=== PATIENT | male | born 1955 | race Caucasian/White ===

== ENCOUNTER → 2016-10-30 | Outpatient (CLI) | payer OTHER ==
--- NOTE | 2016-10-30 13:57 | REP ---
WHOLE BODY RADIONUCLIDE BONE SCAN: HISTORY: Lung carcinoma. Comparison is made with CT pulmonary angiogram from [facility] dated October 19, 2016. TECHNIQUE: 21.9 mCi technetium 99m MDP is injected and standard whole body bone scan imaging is acquired. FINDINGS: There is heterogeneous uptake in the right side of the manubrium consistent with a metastatic lesion. Review of CT study shows a destructive lytic lesion in this location. There is an area of increased uptake in the thoracic spine at T9. There is a focus of increased uptake in the posterolateral 9th rib on the right. In addition there is suspicious photopenia in the right side of the L2 vertebral body. There is a focus of increased uptake in the posterior mid sacrum to the left of midline. There is an area of increased uptake in the subtrochanteric femur on the right. There is uptake in bilateral kidneys and in the urinary bladder. IMPRESSION: There is evidence of skeletal metastatic disease at several sites as above including the manubrium, T9, the right 9th rib, the mid sacrum, L2, and the subtrochanteric femur on the right side. Signed by Mk Ramos MD 10/30/2016 03:00 P
== END | disposition home or self-care (01) ==
LOC: M RAD 09:44
PROVIDERS: ATTEND Internal Medicine Medical Oncology
DX: C34.90 Malignant neoplasm of unspecified part of unspecified bronchus or lung (principal); R93.7 Abnormal findings on diagnostic imaging of other parts of musculoskeletal system

== ENCOUNTER 2016-11-04 02:15 | Emergency (ER) | payer OTHER ==
[2016-11-04] MEDS ORDERED: IPRATROPIUM 0.5MG/ALBUTEROL 2.5MG INH SOL UD 3ML (DUONEB)(J7620) As Ordered ONE (03:24)
[2016-11-04] MEDS ORDERED: MORPHINE 4 MG/ML 1ML SYRINGE As Ordered ONE ×2 (03:32→04:11)
[2016-11-04 03:34] LABS: DIFF SLIDE NUMBER 116; MEAN CORPUSCULAR HEMOGLOBIN 29.1 pg (27.0-33.0); MEAN CORPUSCULAR VOLUME 93.8 fl (80.0-96.0); RED CELL DISTRIBUTION WIDTH 14.9 % (11.5-14.5)
[2016-11-04 03:53] LABS: PLATELET COUNT, AUTOMATED 54 k/mm3 (150-450)
[2016-11-04 03:59] LABS: EOSINOPHILS 1 % (0-5); NUCLEATED RED BLOOD CELL 2 % (0-0)
[2016-11-04 04:03] LABS: HYPOCHROMASIA 1+
[2016-11-04 04:05] LABS: ABG BASE EXCESS -24.1 (-2.0-2.0); ABG DEVICE NASAL CANN; ABG HCO3 4.6 MEQ/L (22.0-26.0); ABG PARTIAL PRESSURE O2 129.9 mmHg (75.0-100.0); ABG STANDARD HCO3 7.9 MEQ/L (22.0-26.0); ABG TOTAL CO2 5.1 MEQ/L (23.0-31.0)
[2016-11-04 04:06] LABS: CALCIUM LEVEL 10.8 MG/DL (8.8-10.2); CREATININE FOR GFR 1.76 MG/DL (0.70-1.30); GLOMERULAR FILTRATION RATE 42.1 (>49)
[2016-11-04 04:09] LABS: ABG PARTIAL PRESSURE CO2 17.1 mmHg (35.0-45.0); ABG pH (ARTERIAL) 7.046 UNITS (7.350-7.450)
[2016-11-04 04:14] LABS: POTASSIUM SERUM 5.6 MEQ/L (3.5-5.1)
[2016-11-04] MEDS ORDERED: DEXTROSE 50% 50 ML SYRINGE As Ordered ONE (04:16)
--- NOTE | 2016-11-04 04:34 | REP ---
Clinical: Cough. Technique: Portable AP view. Findings: Large right hilar mass / consolidation extending into the right upper lobe and right perihilar region is appreciated along with underlying chronic COPD/emphysematous changes. Trace left basilar atelectasis cannot be excluded. No obvious effusion or pneumothorax. [id number] identified extending into the SVC. Cardiac silhouette appears normal. Skeletal structures intact. Impression: Right hilar mass / consolidation extending into the right upper lobe. Chronic COPD/emphysematous changes. Trace left basilar atelectasis. Signed by Thiago Zavaleta MD 11/04/2016 04:26 A
[2016-11-04] MEDS ORDERED: HYDROmorphone HCL 1 MG/ML SYRINGE (J1170) As Ordered ONE (04:46)
[2016-11-04] MEDS ORDERED: ZOSYN 3.375 GM VIAL (J2543) As Ordered ONE (04:47)
[2016-11-04] MEDS ORDERED: LORazepam 2 MG/ML VIAL (J2060) As Ordered ONE (04:50)
--- NOTE | 2016-11-04 06:00 | REPUSA ---
CLINICAL HISTORY: Shortness of breath. TECHNIQUE: Multiple axial CT images were obtained through the thorax without IV contrast material. COMMENTS: 10.9x5.4 cm heterogeneous right upper lobe/perihilar mass. Moderate pulmonary emphysema. Bilateral groundglass densities of the lungs. Left Port-A-Cath is in good position with its tip in the superior vena cava. Small sliding hiatal hernia. Moderate cardiomegaly. Spondylosis. Diffuse bilateral groundglass densities of the lungs. Mediastinal and hilar lymphadenopathy. The largest lymph node measures 1.3 cm. IMPRESSION: Heterogeneous right upper lobe/ihilar mass. Emphysema. Groundglass densities of the lungs. Mediastinal and hilar lymphadenopathy. Thank you for your kind referral of this patient.
--- NOTE | 2016-11-04 06:10 | REPUSA ---
CLINICAL HISTORY: Abdominal pain. TECHNIQUE: Multiple axial, sagittal and coronal CT images were obtained through the abdomen and pelvi s without administration of oral or IV contrast material. COMMENTS: The liver is moderately enlarged without mass or defect. Diffuse irregular hepatic contour. There is no intra or extrahepatic biliary ductal dilatation. The spleen is normal. The gallbladder is within n ormal limits. The pancreas is of normal contour and attenuation characteristics. There is no evidence of adrenal mass. The kidneys are normal in size, shape and configuration. No renal or ureteral calculi are identified. There is no hydroureter or hydronephrosis. There is no evidence for appendicitis. There is no bowel wall thickening. No evidence for small or la rge bowel obstruction. There is no evidence of abdominal ascites or lymphadenopathy. There is no evidence of intrinsic or extrinsic bladder mass. There is no pelvic ascites or lymphadeno sheri. Moderate prostatomegaly. Prostatic calcifications. Diffuse thickening of the wall of the bladder. Images of the lung bases show no evidence of pleural or parenchymal mass. There are no pleural effusi ons. The bony structures are free of lytic or blastic lesions. Multilevel degenerative changes are seen in volving the thoracolumbar spine. Scattered calcifications are seen involving the aorta and major branches compatible with atherosclero sis. IMPRESSION: Moderate prostatomegaly. Prostatic calcifications. Diffuse thickening of the wall of the bladder. Moderate hepatomegaly with diffuse irregularity of hepatic contour. Thank you for your kind referral of this patient.
--- NOTE | 2016-11-04 10:55 | EDDOCDS ---
Nurse's Notes [facility] Name: Bryan Patel Age: 61 yrs Sex: Male : 1955 Arrival Date: 11/04/2016 Time: 02:15 Bed 21 Private MD: Diagnosis: Cardiac qibcbu-Hmd-gfpoy lung cancer;Metabolic acidemia, unspecified-severe Presentation: 11/04 02:17 Presenting complaint: EMS states: 61 yo male with difficulty breathing that became mgs worse couple hours ago, patient recently with lung cancer with mets to the brain. Patient received albuterol en route. 92% on 10L NRB. No reports from patient of SOB after breathing treatment. Suicide/Homicide risk assessment- the patient denies having any suicidal and/or homicidal ideations and does not present with any other emotional, behavioral or mental health complaints. Status: Patient is not a servicer travel trailers or dependent. Transition of care: patient was not received from another setting of care. 02:17 Acuity: BORIS Level 3 mgs 02:17 Method Of Arrival: Ambulance mgs 02:26 Adult Sepsis Screening: The patient does not have new or worsening altered mentation. mgs Patient has a respiratory rate of greater than or equal to 22 (1 point). Systolic blood pressure is greater than 100. Patient has a qSOFA score of 1- Negative Sepsis Screen. Triage Assessment: 02:29 General: Appears uncomfortable, Behavior is cooperative. Pain: Location: lumbar area mgs Pain currently is 8 out of 10 on a pain scale. Pt Declines HIV testing. The patient is triaged at the bedside. See Assessment in Nurses Notes section of ED record. Neurological: Level of Consciousness is awake, alert, Oriented to person, place, time. Cardiovascular: Capillary refill < 3 seconds Heart tones S1 S2 present. Respiratory: Onset: The symptoms/episode began/occurred today, Airway is patent Respiratory effort is even, labored, Respiratory pattern is regular, symmetrical. Derm: Skin is dusky. Historical: - Allergies: no known allergies; - Home Meds: 1. Doc-Q-Lace 100 mg oral cap 1 cap 2 times per day 2. prochlorperazine maleate 5 mg Oral tab 1 tab 3 times per day as needed (Last dose: 11/03/2016 20:00) 3. atenolol 25 mg Oral tab 1 tab once daily (Last dose: 11/03/2016 08:00) 4. Zofran (as hydrochloride) 8 mg Oral tab 1 tab every 6 hours as needed (Last dose: 11/03/2016 20:00) 5. lisinopril 10 mg Oral tab 1 tab once daily (Last dose: 11/03/2016 08:00) 6. oxycodone 5 mg Oral cap 1 cap every 6 hours (Last dose: 11/04/2016 00:45) - PMHx: COPD; Hypertension; lung cancer; bone cancer; liver cancer; - PSHx: none; - Social history: Smoking status: Patient states former smoker of tobacco. No barriers to communication noted, The patient speaks fluent [place]. - Family history: Not pertinent. - : The pt / caregiver states he / she is not on anticoagulants. Home medication list is obtained from family members. - Exposure Risk Screening:: None identified. Screenin:39 Screening information is obtained from the patient, family members. Fall risk: At risk mgs due to age. Assistance ADL's: requires no assistance with activities of daily living. Abuse/DV Screen: The patient / caregiver reports he/she is: not in a situation that causes fear, pain or injury. Nutritional screening: No deficits noted. Advance Directives: Currently, there is no health care proxy. There is no active DNR order. home support is adequate. Assessment: 02:48 General: Appears ill, Behavior is cooperative. Pain: Location: low back area Pain mlc currently is 6 out of 10 on a pain scale. Neurological: Level of Consciousness is awake, obeys commands, Oriented to person, place, time. Cardiovascular: Capillary refill < 3 seconds Heart tones S1 S2 present Rhythm is regular Chest pain is denied. Respiratory: Airway is patent Respiratory effort is even, labored, Respiratory pattern is regular, Breath sounds with rhonchi expiratory bilaterally. Reports shortness of breath. Derm: Skin is pale. 03:25 Reassessment: Patient appears in no apparent distress at this time. Patient states mlc symptoms have not improved. no changes since prior. resp labored. RT at bedside. 03:42 Reassessment: Patient appears in no apparent distress at this time. pt medicated per mlc order. 04:38 General: pt returned from CT, IV fluids infusing per order. non-rebreather in place. . mlc 04:45 General: pt becoming restless on stretcher. pt advised to stay in bed. pt c/o increased mlc abdominal pain. Dr. Smith made aware. 04:47 General: Dr. Smith at bedside, speaking with about patient's rapidly mlc deteriorating condition. pt resting on stretcher, HR decreasing at this time. . 04:53 General: agonal resp at this time. at bedside. . mlc 04:55 General: pt pronounced at this time. . mlc Social Work Consult: 06:06 Social Work Note: Provided support to the family. jfb Vital Signs: 02:26 BP 118 / 82 (auto/); mlc 02:27 BP 144 / 65; Pulse 105; Resp 24; Temp 97.2(TE); Weight 64.86 kg (R); Height 5 ft. 10 dajuan in. (177.80 cm) (R); Pain 0/10; 02:27 Pulse 95 MON; Pulse Ox 90% ; mlc 02:42 Pulse 92 MON; Pulse Ox 91% ; mlc 03:24 Pulse 98 MON; Pulse Ox 93% ; mlc 03:26 Pulse 97 MON; Pulse Ox 95% ; mlc 03:26 BP 117 / 79 (auto/); mlc 03:35 BP 133 / 95 (auto/); mlc 03:35 Pulse 106 MON; Pulse Ox 100% ; mlc 03:45 Pulse 100 MON; Pulse Ox 93% ; mlc 03:45 BP 120 / 82 (auto/); mlc 04:00 BP 139 / 66; Pulse 104; Pulse Ox 97% ; Pain 10/10; mlc 04:09 Pulse 101 MON; Pulse Ox 93% ; mlc 04:09 BP 139 / 66 (auto/); mlc 04:30 BP 135 / 85 (auto/); mlc 04:37 Pulse 108 MON; Pulse Ox 94% ; mlc 04:45 BP 108 / 93 (auto/); mlc 04:45 Pulse 108 MON; Pulse Ox 78% ; mlc 04:59 Pulse 0 MON; mlc 02:27 Body Mass Index 20.52 (64.86 kg, 177.80 cm) dajuan ED Course: 02:16 Patient visited by Rodri Rich, College Physics Instructor. ml3 02:16 Nika Looney,RN is Primary Nurse. ml3 02:16 Patient moved to Waiting ml3 02:16 Patient moved to 10 ml3 02:20 Triage Initiated mgs 02:26 Patient moved to 3 tavo 02:27 Pt greeted and oriented to ED. Patient advised of names of staff involved in care, dajuan location of call bashir, wait times and NPO status. Patient has correct armband on for positive identification. Placed in gown. Bed in low position. Call light in reach. Side rails up X2. small boat engineer on. Pulse ox on. NIBP on. 02:28 Patient visited by Ophelia Diaz PCA. dajuan 02:39 The patient / caregiver is instructed regarding the plan of care and ED course. mgs 02:40 Maintain field IV. Dressing intact. Good blood return noted. Site clean & dry. Gauge & mgs site: 20 gauge in the left AC. 02:48 O2 via non-rebreather \T\ 15L/min. mlc 02:50 Patient visited by Nika Looney RN. mlc 03:01 Edward Smith DO is Attending Physician. mm11 03:01 Patient visited by Edward Smith DO. mm11 03:16 Patient visited by Edward Smith DO. mm11 03:18 Patient visited by Ophelia Diaz PCA. dajuan 03:18 Patient moved to Radiology moncho 03:18 EKG done. (by ED staff). Reviewed by Edward Smith DO. dajuan 03:25 BLOOD CULTURES Sent. mlc 03:25 -Blood Culture Sent. mlc 03:25 B-Type Natiuretic Peptide Sent. mlc 03:25 Basic Metabolic Profile Sent. mlc 03:25 CBC with Diff Sent. mlc 03:25 Cardiac Injury Profile Sent. mlc 03:26 Patient visited by Nika Looney RN. mlc 03:32 Patient moved to 3 moncho 03:43 Patient visited by Nika Looney RN. mlc 03:59 DIFFERENTIAL NO CHARGE Sent. mlc 04:02 -Arterial Blood Gas Sent. rs5 04:15 Notified attending ED physician of Critical lab value. pH 7.046 pCo2 17.1 and glucose js15 of 32. 04:21 Lactic Acid (Bruno tube on ice) Sent. mlc 04:39 Patient visited by Nika Looney RN. mlc 04:50 Patient name changed from Bryan\S\\S\Patel\S\ to Bryan\S\ \S\Patel. EDMS 04:51 [facility] Payment Agreement was scanned into [employer] and attached to record. hs2 04:51 Notified attending ED physician of Critical lab value. lactic acid of 17. mlc 05:09 Edward Smith DO is Pronouncing Provider. mm11 05:12 Chest, 1 View Returned. EDMS 05:12 No procedures done that require assistance. mlc 05:20 Patient moved to Oct 05:36 Trend VS was scanned into [employer] and attached to record. ml3 06:33 CT Chest Without Contrast Returned. EDMS 06:33 CT ABD & PELVIS: No Contrast Returned. EDMS 08:54 Primary Nurse role handed off by Nika Looney RN [email or web address] Administered Medications: 03:35 Drug: morphine 4 mg [morphine 4 mg/mL intravenous cartridge (1 mL)] Route: IVP; Site: [facility] left antecubital; 04:00 Follow up: BP 139 / 66; Pulse 104 bpm; Pulse Ox 97% ; Pain 10/10 Adult [facility] 03:45 Drug: Albuterol-Ipratropium 1 neb [ipratropium-albuterol 0.5 mg-3 mg(2.5 mg base)/3 mL rs5 nebulization soln (1 neb)] Route: Nebulizer; 04:00 Drug: Albuterol-Ipratropium 1 neb [ipratropium-albuterol 0.5 mg-3 mg(2.5 mg base)/3 mL rs5 nebulization soln (1 neb)] Route: Nebulizer; 04:00 Drug: Albuterol-Ipratropium 1 neb [ipratropium-albuterol 0.5 mg-3 mg(2.5 mg base)/3 mL rs5 nebulization soln (1 neb)] Route: Nebulizer; 04:12 Drug: morphine 4 mg [morphine 4 mg/mL intravenous cartridge (1 mL)] Route: IVP; Site: mlc left antecubital; 04:20 Drug: D50W 50 ml [dextrose 50 % in water (D50W) intravenous syringe (50 mL)] Route: mlc IVP; Site: left antecubital; 04:38 Drug: NS 0.9% 1000 ml [sodium chloride 0.9 % intravenous solution] Route: IV; Rate: mlc bolus; Site: left antecubital; 04:55 CANCELLED (patient ): LORazepam 1 mg IVP once mgs 06:52 Not Given (Patient ): Dilaudid - HYDROmorphone 1 mg IVP once tavo 06:53 Not Given (Patient ): Piperacillin-Tazobactam 3.375 grams IVPB once over 30 oct mins; dilute in 50mL of NS or D5W Attachments: 05:36 Trend VS ml3 RT: 02:40 O2 via high flow nasal cannula with humidity for comfort. 15 lpm sats 93%. rs5 02:48 O2 via non-rebreather pt didn't tolerate high flow cannula. requested to have the non rs5 rebreather. 04:02 ABG's drawn from right radial artery allens test done and positive pressure held for 5 rs5 minutes no bleeding noted pressure bandage applied specimen sent pt. tolerated well. Initial Med Neb Given as ordered Patient was instructed and evaluated on procedure Patient tolerated procedure well without adverse effect Subsequent Med Neb Given as ordered Patient tolerated procedure well without adverse effect. Respiratory: Respiratory effort is even, labored, Use of accessory muscles noted. w/ retractions, Breath sounds are coarse bilaterally. Reports. Order Results: Lab Order: -Arterial Blood Gas; SPEC'M 11/04/16 03:35 Test: ABG pH (ARTERIAL); Value: 7.046; Range: 7.350-7.450; Abnormal: Critical Low; Units: UNITS; Status: F Test: ABG PARTIAL PRESSURE CO2; Value: 17.1; Range: 35.0-45.0; Abnormal: Critical Low; Units: mmHg; Status: F Test: ABG PARTIAL PRESSURE O2; Value: 129.9; Range: 75.0-100.0; Abnormal: Above high normal; Units: mmHg; Status: F Test: ABG TOTAL CO2; Value: 5.1; Range: 23.0-31.0; Abnormal: Below low normal; Units: MEQ/L; Status: F Test: ABG HCO3; Value: 4.6; Range: 22.0-26.0; Abnormal: Below low normal; Units: MEQ/L; Status: F Test: ABG BASE EXCESS; Value: -24.1; Range: -2.0-2.0; Abnormal: Below low normal; Status: F Test: ABG STANDARD HCO3; Value: 7.9; Range: 22.0-26.0; Abnormal: Below low normal; Units: MEQ/L; Status: F Test: ABG O2 SATURATION; Value: 97.2; Range: 95.0-99.0; Units: %; Status: F Test: ABG DEVICE; Value: NASAL ERIKA; Status: F Lab Order: B-Type Natiuretic Peptide; SPEC'M 11/04/16 03:21 Test: BRAIN NATRIURETIC PEPTIDE; Value: 960; Range: <100; Abnormal: Above high normal; Units: PG/ML; Status: F Lab Order: Basic Metabolic Profile; SPEC'M 11/04/16 03:21 Test: GLUCOSE, FASTING; Value: 32; Range: 80-110; Abnormal: Critical Low; Units: MG/DL; Status: F Test: BLOOD UREA NITROGEN; Value: 51; Range: 7-18; Abnormal: Above high normal; Units: MG/DL; Status: F Test: CREATININE FOR GFR; Value: 1.76; Range: 0.70-1.30; Abnormal: Above high normal; Units: MG/DL; Status: F Test: GLOMERULAR FILTRATION RATE; Value: 42.1; Range: >49; Abnormal: Below low normal; Status: F Test: SODIUM LEVEL; Value: 141; Range: 136-145; Units: MEQ/L; Status: F Test: POTASSIUM SERUM; Value: 5.6; Range: 3.5-5.1; Abnormal: Above high normal; Units: MEQ/L; Status: F Test: CHLORIDE LEVEL; Value: 100; Range: 98-107; Units: MEQ/L; Status: F Test: CARBON DIOXIDE LEVEL; Value: 10; Range: 21-32; Abnormal: Below low normal; Units: MEQ/L; Status: F Test: ANION GAP; Value: 31; Range: 8-16; Abnormal: Above high normal; Units: MEQ/L; Status: F Test: CALCIUM LEVEL; Value: 10.8; Range: 8.8-10.2; Abnormal: Above high normal; Units: MG/DL; Status: F Test Note: ; Units are mL/min/1.73 m2 Chronic Kidney Disease Staging per NKF: Stage I & II GFR >=60 Normal to Mildly Decreased Stage III GFR 30-59 Moderately Decreased Stage IV GFR 15-29 Severely Decreased Stage V GFR <15 Very Little GFR Left ESRD GFR <15 on BIT SHAVER Lab Order: CBC with Diff; SPEC'M 11/04/16 03:21 Test: WHITE BLOOD COUNT; Value: 20.0; Range: 4.0-10.0; Abnormal: Above high normal; Units: K/mm3; Status: F Test: RED BLOOD COUNT; Value: 4.58; Range: 4.30-6.10; Units: M/mm3; Status: F Test: HEMOGLOBIN; Value: 13.3; Range: 14.0-18.0; Abnormal: Below low normal; Units: g/dl; Status: F Test: HEMATOCRIT; Value: 43.0; Range: 42.0-52.0; Units: %; Status: F Test: MEAN CORPUSCULAR VOLUME; Value: 93.8; Range: 80.0-96.0; Units: fl; Status: F Test: MEAN CORPUSCULAR HEMOGLOBIN; Value: 29.1; Range: 27.0-33.0; Units: pg; Status: F Test: MEAN CORPUSCULAR HGB CONC; Value: 31.0; Range: 32.0-36.5; Abnormal: Below low normal; Units: g/dl; Status: F Test: RED CELL DISTRIBUTION WIDTH; Value: 14.9; Range: 11.5-14.5; Abnormal: Above high normal; Units: %; Status: F Test: PLATELET COUNT, AUTOMATED; Value: 54; Range: 150-450; Abnormal: Below low normal; Units: k/mm3; Status: F Test Note: ; A Pathologist review of this differential can help in the evaluation of a differential diagnosis. Please order a Pathologist Review (PATHREVCOMP) if deemed necessary. Results are subject to change if a Pathologist Review is performed. Test: NEUTROPHILS; Value: 62; Range: 35-75; Units: %; Status: F Test: LYMPHOCYTES; Value: 30; Range: 16-52; Units: %; Status: F Test: MONOCYTES; Value: 5; Range: 0-8; Units: %; Status: F Test: EOSINOPHILS; Value: 1; Range: 0-5; Units: %; Status: F Test: ATYPICAL LYMPH; Value: 2; Range: 0-5; Units: %; Status: F Test: NUCLEATED RED BLOOD CELL; Value: 2; Range: 0-0; Abnormal: Above high normal; Units: %; Status: F Test: RBC MORPHOLOGY; Value: NORMAL; Status: F Test: HYPOCHROMASIA; Value: 1+; Status: F Lab Order: Cardiac Injury Profile; [facility]11/04/16 03:21 Test: CPK CREATINE PHOSPHOKINASE; Value: 761; Range: 39-308; Abnormal: Above high normal; Units: U/L; Status: F Test: CK-MB VALUE MASS; Value: 12.1; Range: 0.0-3.6; Abnormal: Above high normal; Units: NG/ML; Status: F Test: MB/CK RELATIVE INDEX; Value: 1.59; Range: < OR =4; Status: F Test Note: ; DIAGNOSIS CRITERIA MMB ng/ml Relative Index (RI) NON-AMI < or = 5 N/A BRUNO ZONE > 5 < or = 4 AMI > 5 > 4 Lab Order: PLATELET ESTIMATE; 11/04/16 03:21 Test: PLATELET ESTIMATE; Value: MARKED DECREASE; Range: NORMAL; Status: F Lab Order: Lactic Acid (Bruno tube on ice); SPEC11/04/16 03:21 Test: LACTIC ACID LEVEL, LACTATE; Value: 17.0; Range: 0.4-2.0; Abnormal: Above upper panic limits; Units: MMOL/L; Status: F Radiology Order: Chest, 1 View Test: Chest, 1 View REASON FOR EXAMINATION: Cough; Clinical: Cough.; ; Technique: Portable AP view.; ; Findings:; Large right hilar mass / consolidation extending into the right upper lobe and; right perihilar region is appreciated along with underlying chronic; COPD/emphysematous changes. Trace left basilar atelectasis cannot be excluded.; No obvious effusion or pneumothorax. [id number] identified extending into the; SVC. Cardiac silhouette appears normal. Skeletal structures intact.; ; Impression:; Right hilar mass / consolidation extending into the right upper lobe.; Chronic COPD/emphysematous changes.; Trace left basilar atelectasis.; ; ; Signed by; Thiago Zavaleta MD 11/04/2016 04:26 A; Radiology Order: CT Chest Without Contrast Test: CT Chest Without Contrast REASON FOR EXAMINATION: Shortness of Breath; ; CLINICAL HISTORY: Shortness of breath.; TECHNIQUE: Multiple axial CT images were obtained through the thorax without IV contrast material.; COMMENTS:; 10.9x5.4 cm heterogeneous right upper lobe/perihilar mass.; Moderate pulmonary emphysema.; Bilateral groundglass densities of the lungs.; Left Port-A-Cath is in good position with its tip in the superior vena cava.; Small sliding hiatal hernia.; Moderate cardiomegaly.; Spondylosis.; Diffuse bilateral groundglass densities of the lungs.; Mediastinal and hilar lymphadenopathy. The largest lymph node measures 1.3 cm.; IMPRESSION:; Heterogeneous right upper lobe/ihilar mass.; Emphysema.; Groundglass densities of the lungs.; Mediastinal and hilar lymphadenopathy.; Thank you for your kind referral of this patient.; ; ; Radiology Order: CT ABD & PELVIS: No Contrast Test: CT ABD & PELVIS: No Contrast REASON FOR EXAMINATION: Abdomen Pain; ; CLINICAL HISTORY: Abdominal pain.; TECHNIQUE: Multiple axial, sagittal and coronal CT images were obtained through the abdomen and pelvi; s without administration of oral or IV contrast material.; COMMENTS:; The liver is moderately enlarged without mass or defect. Diffuse irregular hepatic contour. There is; no intra or extrahepatic biliary ductal dilatation. The spleen is normal. The gallbladder is within n; ormal limits. The pancreas is of normal contour and attenuation characteristics. There is no evidence; of adrenal mass.; The kidneys are normal in size, shape and configuration. No renal or ureteral calculi are identified.; There is no hydroureter or hydronephrosis.; There is no evidence for appendicitis. There is no bowel wall thickening. No evidence for small or la; rge bowel obstruction. There is no evidence of abdominal ascites or lymphadenopathy.; There is no evidence of intrinsic or extrinsic bladder mass. There is no pelvic ascites or lymphadeno; sheri.; Moderate prostatomegaly. Prostatic calcifications. Diffuse thickening of the wall of the bladder.; Images of the lung bases show no evidence of pleural or parenchymal mass. There are no pleural effusi; ons.; The bony structures are free of lytic or blastic lesions. Multilevel degenerative changes are seen in; volving the thoracolumbar spine.; Scattered calcifications are seen involving the aorta and major branches compatible with atherosclero; sis.; IMPRESSION:; Moderate prostatomegaly.; Prostatic calcifications.; Diffuse thickening of the wall of the bladder.; Moderate hepatomegaly with diffuse irregularity of hepatic contour.; Thank you for your kind referral of this patient.; ; Outcome: 05:10 Patient . mm11 05:10 Discharge Assessment: patient administered narcotics - yes. mlc 10:49 Discharged to. Condition: . Property :Personal belongings accompany Pt. kcs 10:51 The following High Risk Discharge criteria are identified: Yes, PSAs Pilar Kruse and meena Daigley Noe had multiple contacts with family members. Patient : Time of 04:55 Pronounced by Edward Smith DO Family Notified: here at time of Body to slick Soriano MD notified Dr. Venegas will sign certificate - family requests [facility] in [place]. CT Study completed. 10:54 Patient left the ED. kcs Signatures: Dispatcher [employer] EDMarisa Brown RN RN kcs Newman, Jill New, RN RN jan Bartlett, Floyd fab Lopresti, Mary-Elizabeth, College Physics Instructor Unit ml3 Edward Smith DO DO mm11 Pilar Kruse, PSA PSA jfb [place] Trammell RN RN [id number] Joe, Ophelia, LENDING ACTIVITIES SUPERVISOR LENDING ACTIVITIES SUPERVISOR dajuan Harsha Leslie,RT RT rs5 Nika Looney RN RN mlc Sheldon, Matthew,Susanne Carpenter RN,RN RN js15 Laurie [place], Reg Reg hs2 Corrections: (The following items were deleted from the chart) 02:39 02:29 Allergies: no known allergies; mgs mgs 05:12 04:55 General: pt pronounced at this time. . [facility]
--- NOTE | 2016-11-04 10:55 | EDDOCDS ---
Physician Documentation [facility] Name: Bryan Patel Age: 61 yrs Sex: Male : 1955 Arrival Date: 11/04/2016 Time: 02:15 Bed 21 Private MD: Disposition: Patient pronounced on 11/04/16 04:55 by Edward Smith. Impression: Cardiac arrest - End-stage lung cancer, Metabolic acidemia, unspecified - severe. Historical: - Allergies: no known allergies; - Home Meds: 1. Doc-Q-Lace 100 mg oral cap 1 cap 2 times per day 2. prochlorperazine maleate 5 mg Oral tab 1 tab 3 times per day as needed (Last dose: 11/03/2016 20:00) 3. atenolol 25 mg Oral tab 1 tab once daily (Last dose: 11/03/2016 08:00) 4. Zofran (as hydrochloride) 8 mg Oral tab 1 tab every 6 hours as needed (Last dose: 11/03/2016 20:00) 5. lisinopril 10 mg Oral tab 1 tab once daily (Last dose: 11/03/2016 08:00) 6. oxycodone 5 mg Oral cap 1 cap every 6 hours (Last dose: 11/04/2016 00:45) - PMHx: COPD; Hypertension; lung cancer; bone cancer; liver cancer; - PSHx: none; - Social history: Smoking status: Patient states former smoker of tobacco. No barriers to communication noted, The patient speaks fluent Divehi. - Family history: Not pertinent. - : The pt / caregiver states he / she is not on anticoagulants. Home medication list is obtained from family members. - Exposure Risk Screening:: None identified. Vital Signs: 11/04 02:26 BP 118 / 82 (auto/); mlc 02:27 BP 144 / 65; Pulse 105; Resp 24; Temp 97.2(TE); Weight 64.86 kg / 142.99 lbs (R); dajuan Height 5 ft. 10 in. (177.80 cm) (R); Pain 0/10; 02:27 Pulse 95 MON; Pulse Ox 90% ; mlc 02:42 Pulse 92 MON; Pulse Ox 91% ; mlc 03:24 Pulse 98 MON; Pulse Ox 93% ; mlc 03:26 Pulse 97 MON; Pulse Ox 95% ; mlc 03:26 BP 117 / 79 (auto/); mlc 03:35 BP 133 / 95 (auto/); mlc 03:35 Pulse 106 MON; Pulse Ox 100% ; mlc 03:45 Pulse 100 MON; Pulse Ox 93% ; mlc 03:45 BP 120 / 82 (auto/); mlc 04:00 BP 139 / 66; Pulse 104; Pulse Ox 97% ; Pain 10/10; mlc 04:09 Pulse 101 MON; Pulse Ox 93% ; mlc 04:09 BP 139 / 66 (auto/); mlc 04:30 BP 135 / 85 (auto/); mlc 04:37 Pulse 108 MON; Pulse Ox 94% ; mlc 04:45 BP 108 / 93 (auto/); mlc 04:45 Pulse 108 MON; Pulse Ox 78% ; mlc 04:59 Pulse 0 MON; mlc 02:27 Body Mass Index 20.52 (64.86 kg, 177.80 cm) dajuan MDM: 03:12 -Blood Culture (Adults Only), peripheral from different site, or from device/port/PICC mm11 etc. if present ordered. 03:12 Call Respiratory ordered. mm11 03:12 Fleshing Machine Operator/Pulse Ox/q 15 min VS ordered. mm11 03:12 IV Saline Lock ordered. mm11 03:12 Oxygen at 4L/Min NC or Home dosage ordered. mm11 03:12 Rhythm Strip to chart ordered. mm11 03:12 Albuterol-Ipratropium 1 neb Nebulizer every 20 minutes x3 ordered. mm11 03:13 -Arterial Blood Gas Ordered. EDMS 03:13 B-Type Natiuretic Peptide Ordered. EDMS 03:13 Basic Metabolic Profile Ordered. EDMS 03:13 CBC with Diff Ordered. EDMS 03:13 Cardiac Injury Profile Ordered. EDMS 03:13 -Blood Culture Ordered. EDMS 03:14 Chest, 1 View Ordered. EDMS 03:14 ECG WITH READING ER PHYS+CARDIAG ordered. EDMS 03:17 Call Respiratory complete. ml3 03:20 BLOOD CULTURES Ordered. EDMS 03:23 -Blood Culture (Adults Only), peripheral from different site, or from device/port/PICC ml3 etc. if present complete. 03:31 morphine 4 mg IVP every 30 minutes; Document pain score/vitals after each dose (Hold if mm11 SBP < 90mmHg) x2 ordered. 03:54 DIFFERENTIAL NO CHARGE Ordered. EDMS 04:10 B-Type Natiuretic Peptide Reviewed. mm11 04:10 CBC with Diff Reviewed. mm11 04:10 PLATELET ESTIMATE Reviewed. mm11 04:16 D50W 50 ml IVP once; (1 amp) ordered. mm11 04:16 -Arterial Blood Gas Reviewed. mm11 04:16 Basic Metabolic Profile Reviewed. mm11 04:16 Cardiac Injury Profile Reviewed. mm11 04:17 NS 0.9% 1000 ml IV at bolus once ordered. mm11 04:18 Lactic Acid (Bruno tube on ice) Ordered. EDMS 04:18 CT Chest Without Contrast Ordered. EDMS 04:19 CT ABD & PELVIS: No Contrast Ordered. EDMS 04:43 Piperacillin-Tazobactam 3.375 grams IVPB once over 30 mins; dilute in 50mL of NS or D5W mm11 ordered. 04:45 Dilaudid - HYDROmorphone 1 mg IVP once ordered. mm11 04:51 Financial registration complete. hs2 04:51 [facility] [place] [facility] [place] Agreement was scanned into [employer] and attached to record. hs2 04:58 Lactic Acid (Bruno tube on ice) Reviewed. mm11 05:25 Chest, 1 View Reviewed. mm11 05:36 Trend VS was scanned into [employer] and attached to record. ml3 Administered Medications: 03:35 Drug: morphine 4 mg [morphine 4 mg/mL intravenous cartridge (1 mL)] Route: IVP; Site: mlc left antecubital; 04:00 Follow up: BP 139 / 66; Pulse 104 bpm; Pulse Ox 97% ; Pain 10/10 [place] [facility] [place] Drug: Albuterol-Ipratropium 1 neb [ipratropium-albuterol 0.5 mg-3 mg(2.5 mg base)/3 mL rs5 nebulization soln (1 neb)] Route: Nebulizer; 04:00 Drug: Albuterol-Ipratropium 1 neb [ipratropium-albuterol 0.5 mg-3 mg(2.5 mg base)/3 mL rs5 nebulization soln (1 neb)] Route: Nebulizer; 04:00 Drug: Albuterol-Ipratropium 1 neb [ipratropium-albuterol 0.5 mg-3 mg(2.5 mg base)/3 mL rs5 nebulization soln (1 neb)] Route: Nebulizer; 04:12 Drug: morphine 4 mg [morphine 4 mg/mL intravenous cartridge (1 mL)] Route: IVP; Site: mlc left antecubital; 04:20 Drug: D50W 50 ml [dextrose 50 % in water (D50W) intravenous syringe (50 mL)] Route: mlc IVP; Site: left antecubital; 04:38 Drug: NS 0.9% 1000 ml [sodium chloride 0.9 % intravenous solution] Route: IV; Rate: mlc bolus; Site: left antecubital; 04:55 CANCELLED (patient ): LORazepam 1 mg IVP once mgs 06:52 Not Given (Patient ): Dilaudid - HYDROmorphone 1 mg IVP once oct 06:53 Not Given (Patient ): Piperacillin-Tazobactam 3.375 grams IVPB once over 30 oct mins; dilute in 50mL of NS or D5W Signatures: Dispatcher [employer] EDMarisa Brown RN RN [facility] Rodri Rich, Invoice Control Clerk Unit ml3 Edward Smith, DO DO mm11 Nika Looney RN [place] [facility] [place] Edward Alford RN RN mgs Laurie Hills, Reg Reg hs2 Yulisa Kearney RN, Richard RT rs5 The chart was reviewed and I authenticate all verbal orders and agree with the evaluation and treatment provided.Corrections: (The following items were deleted from the chart) 02:39 02:29 Allergies: no known allergies; mgs mgs 04:55 04:54 LORazepam 1 mg IVP once ordered. mgs mgs 06:53 04:16 Accucheck hourly ordered. mm11 oct Attachments: 04:51 [facility] [place] [facility] [place] Payment Agreement hs2 MTDD
--- NOTE | 2016-11-04 20:48 | ECGEPIP ---
Stationary ECG Study [facility] - ED Test Date: 2016-11-04 Pat Name: JOANN IBRAHIM Department: Room: - Gender: M Rn Clinician: NavarroB: 1955 Requested By: DANA Storey Order Number: [id number] Reading MD: Marlena Crenshaw Measurements Intervals [place] Rate: 99 P: 73 MT: 109 QRS: 81 QRSD: 125 T: 9 QT: 349 QTc: 449 Interpretive Statements SINUS RHYTHM WITH SHORT MT INTERVAL POSSIBLE LEFT ATRIAL ENLARGEMENT POSSIBLE RIGHT VENTRICULAR CONDUCTION DELAY NO PRIOR FOR COMPARISON Electronically Signed On 11-04-2016 20:48:07 EST by Marlena Crenshaw
--- NOTE | 2016-11-06 11:55 | EDDOCDS ---
Physician Documentation [facility] Name: Bryan Patel Age: 61 yrs Sex: Male : 1955 Arrival Date: 11/04/2016 Time: 02:15 Bed 21 Private MD: Disposition: Patient pronounced on 11/04/16 04:55 by Edward Smith. Impression: Cardiac arrest - End-stage lung cancer, Metabolic acidemia, unspecified - severe. Historical: - Allergies: no known allergies; - Home Meds: 1. Doc-Q-Lace 100 mg oral cap 1 cap 2 times per day 2. prochlorperazine maleate 5 mg Oral tab 1 tab 3 times per day as needed (Last dose: 11/03/2016 20:00) 3. atenolol 25 mg Oral tab 1 tab once daily (Last dose: 11/03/2016 08:00) 4. Zofran (as hydrochloride) 8 mg Oral tab 1 tab every 6 hours as needed (Last dose: 11/03/2016 20:00) 5. lisinopril 10 mg Oral tab 1 tab once daily (Last dose: 11/03/2016 08:00) 6. oxycodone 5 mg Oral cap 1 cap every 6 hours (Last dose: 11/04/2016 00:45) - PMHx: COPD; Hypertension; lung cancer; bone cancer; liver cancer; - PSHx: none; - Social history: Smoking status: Patient states former smoker of tobacco. No barriers to communication noted, The patient speaks fluent Macedonian. - Family history: Not pertinent. - : The pt / caregiver states he / she is not on anticoagulants. Home medication list is obtained from family members. - Exposure Risk Screening:: None identified. Vital Signs: 11/04 02:26 BP 118 / 82 (auto/); mlc 02:27 BP 144 / 65; Pulse 105; Resp 24; Temp 97.2(TE); Weight 64.86 kg / 142.99 lbs (R); dajuan Height 5 ft. 10 in. (177.80 cm) (R); Pain 0/10; 02:27 Pulse 95 MON; Pulse Ox 90% ; mlc 02:42 Pulse 92 MON; Pulse Ox 91% ; mlc 03:24 Pulse 98 MON; Pulse Ox 93% ; mlc 03:26 Pulse 97 MON; Pulse Ox 95% ; mlc 03:26 BP 117 / 79 (auto/); mlc 03:35 BP 133 / 95 (auto/); mlc 03:35 Pulse 106 MON; Pulse Ox 100% ; mlc 03:45 Pulse 100 MON; Pulse Ox 93% ; mlc 03:45 BP 120 / 82 (auto/); mlc 04:00 BP 139 / 66; Pulse 104; Pulse Ox 97% ; Pain 10/10; mlc 04:09 Pulse 101 MON; Pulse Ox 93% ; mlc 04:09 BP 139 / 66 (auto/); mlc 04:30 BP 135 / 85 (auto/); mlc 04:37 Pulse 108 MON; Pulse Ox 94% ; mlc 04:45 BP 108 / 93 (auto/); mlc 04:45 Pulse 108 MON; Pulse Ox 78% ; mlc 04:59 Pulse 0 MON; mlc 02:27 Body Mass Index 20.52 (64.86 kg, 177.80 cm) dajuan MDM: 03:12 -Blood Culture (Adults Only), peripheral from different site, or from device/port/PICC mm11 etc. if present ordered. 03:12 Call Respiratory ordered. mm11 03:12 Furniture Lumber Production Worker/Pulse Ox/q 15 min VS ordered. mm11 03:12 IV Saline Lock ordered. mm11 03:12 Oxygen at 4L/Min NC or Home dosage ordered. mm11 03:12 Rhythm Strip to chart ordered. mm11 03:12 Albuterol-Ipratropium 1 neb Nebulizer every 20 minutes x3 ordered. mm11 03:13 -Arterial Blood Gas Ordered. EDMS 03:13 B-Type Natiuretic Peptide Ordered. EDMS 03:13 Basic Metabolic Profile Ordered. EDMS 03:13 CBC with Diff Ordered. EDMS 03:13 Cardiac Injury Profile Ordered. EDMS 03:13 -Blood Culture Ordered. EDMS 03:14 Chest, 1 View Ordered. EDMS 03:14 ECG WITH READING ER PHYS+CARDIAG ordered. EDMS 03:17 Call Respiratory complete. ml3 03:20 BLOOD CULTURES Ordered. EDMS 03:23 -Blood Culture (Adults Only), peripheral from different site, or from device/port/PICC ml3 etc. if present complete. 03:31 morphine 4 mg IVP every 30 minutes; Document pain score/vitals after each dose (Hold if mm11 SBP < 90mmHg) x2 ordered. 03:54 DIFFERENTIAL NO CHARGE Ordered. EDMS 04:10 B-Type Natiuretic Peptide Reviewed. mm11 04:10 CBC with Diff Reviewed. mm11 04:10 PLATELET ESTIMATE Reviewed. mm11 04:16 D50W 50 ml IVP once; (1 amp) ordered. mm11 04:16 -Arterial Blood Gas Reviewed. mm11 04:16 Basic Metabolic Profile Reviewed. mm11 04:16 Cardiac Injury Profile Reviewed. mm11 04:17 NS 0.9% 1000 ml IV at bolus once ordered. mm11 04:18 Lactic Acid (Bruno tube on ice) Ordered. EDMS 04:18 CT Chest Without Contrast Ordered. EDMS 04:19 CT ABD & PELVIS: No Contrast Ordered. EDMS 04:43 Piperacillin-Tazobactam 3.375 grams IVPB once over 30 mins; dilute in 50mL of NS or D5W mm11 ordered. 04:45 Dilaudid - HYDROmorphone 1 mg IVP once ordered. mm11 04:51 Financial registration complete. hs2 04:51 [facility] [place] Payment Agreement was scanned into [email or web address] and attached to record. hs2 04:58 Lactic Acid (Bruno tube on ice) Reviewed. mm11 05:25 Chest, 1 View Reviewed. mm11 05:36 Trend VS was scanned into [email or web address] and attached to record. ml3 14:28 Other: CHECKLIST FOR PT was scanned into [email or web address] and attached to record. gb 14:28 T-Sheet-- Draft Copy was scanned into [email or web address] and attached to record. gb 14:28 ECG/EKG was scanned into [email or web address] and attached to record. gb 14:28 Radiology Report was scanned into [email or web address] and attached to record. gb 14:29 PCR was scanned into [email or web address] and attached to record. gb Administered Medications: 03:35 Drug: morphine 4 mg [morphine 4 mg/mL intravenous cartridge (1 mL)] Route: IVP; Site: mlc left antecubital; 04:00 Follow up: BP 139 / 66; Pulse 104 bpm; Pulse Ox 97% ; Pain 10/10 [place] [facility] [place] 03:45 Drug: Albuterol-Ipratropium 1 neb [ipratropium-albuterol 0.5 mg-3 mg(2.5 mg base)/3 mL rs5 nebulization soln (1 neb)] Route: Nebulizer; 04:00 Drug: Albuterol-Ipratropium 1 neb [ipratropium-albuterol 0.5 mg-3 mg(2.5 mg base)/3 mL rs5 nebulization soln (1 neb)] Route: Nebulizer; 04:00 Drug: Albuterol-Ipratropium 1 neb [ipratropium-albuterol 0.5 mg-3 mg(2.5 mg base)/3 mL rs5 nebulization soln (1 neb)] Route: Nebulizer; 04:12 Drug: morphine 4 mg [morphine 4 mg/mL intravenous cartridge (1 mL)] Route: IVP; Site: mlc left antecubital; 04:20 Drug: D50W 50 ml [dextrose 50 % in water (D50W) intravenous syringe (50 mL)] Route: mlc IVP; Site: left antecubital; 04:38 Drug: NS 0.9% 1000 ml [sodium chloride 0.9 % intravenous solution] Route: IV; Rate: mlc bolus; Site: left antecubital; 04:55 CANCELLED (patient ): LORazepam 1 mg IVP once mgs 06:52 Not Given (Patient ): Dilaudid - HYDROmorphone 1 mg IVP once oct 06:53 Not Given (Patient ): Piperacillin-Tazobactam 3.375 grams IVPB once over 30 oct mins; dilute in 50mL of NS or D5W Signatures: Dispatcher [employer] EDMS Marisa Zepeda RN RN [facility] Nona Harvey, Reg Reg gb Rodri Rich, Director Of Employee Development Unit ml3 Edward Smith, DO DO mm11 Nika Looney RN RN [facility] [place] Edward Alford RN RN mgs Laurie Hills, Reg Reg hs2 Yulisa Kearney RN, Richard RT rs5 The chart was reviewed and I authenticate all verbal orders and agree with the evaluation and treatment provided.Corrections: (The following items were deleted from the chart) 02:39 02:29 Allergies: no known allergies; mgs mgs 04:55 04:54 LORazepam 1 mg IVP once ordered. mgs mgs 06:53 04:16 Accucheck hourly ordered. mm11 oct Attachments: 04:51 [facility] Payment Agreement hs2 14:28 T-Sheet-- Draft Copy gb 14:28 ECG/EKG gb Chart Complete MTDD
--- NOTE | 2016-11-06 11:55 | EDDOCDS ---
Nurse's Notes [facility] Name: Joann Ibrahim Age: 61 yrs Sex: Male : 1955 Arrival Date: 11/04/2016 Time: 02:15 Bed 21 Private MD: Diagnosis: Cardiac [id number] lung cancer;Metabolic acidemia, unspecified-severe Presentation: 11/04 02:17 Presenting complaint: EMS states: 61 yo male with difficulty breathing that became mgs worse couple hours ago, patient recently with lung cancer with mets to the brain. Patient received albuterol en route. 92% on 10L NRB. No reports from patient of SOB after breathing treatment. Suicide/Homicide risk assessment- the patient denies having any suicidal and/or homicidal ideations and does not present with any other emotional, behavioral or mental health complaints. Status: Patient is not a food service sales representatives or dependent. Transition of care: patient was not received from another setting of care. 02:17 Acuity: BORIS Level 3 mgs 02:17 Method Of Arrival: Ambulance mgs 02:26 Adult Sepsis Screening: The patient does not have new or worsening altered mentation. mgs Patient has a respiratory rate of greater than or equal to 22 (1 point). Systolic blood pressure is greater than 100. Patient has a qSOFA score of 1- Negative Sepsis Screen. Triage Assessment: 02:29 General: Appears uncomfortable, Behavior is cooperative. Pain: Location: lumbar area mgs Pain currently is 8 out of 10 on a pain scale. Pt Declines HIV testing. The patient is triaged at the bedside. See Assessment in Nurses Notes section of ED record. Neurological: Level of Consciousness is awake, alert, Oriented to person, place, time. Cardiovascular: Capillary refill < 3 seconds Heart tones S1 S2 present. Respiratory: Onset: The symptoms/episode began/occurred today, Airway is patent Respiratory effort is even, labored, Respiratory pattern is regular, symmetrical. Derm: Skin is dusky. Historical: - Allergies: no known allergies; - Home Meds: 1. Doc-Q-Lace 100 mg oral cap 1 cap 2 times per day 2. prochlorperazine maleate 5 mg Oral tab 1 tab 3 times per day as needed (Last dose: 11/03/2016 20:00) 3. atenolol 25 mg Oral tab 1 tab once daily (Last dose: 11/03/2016 08:00) 4. Zofran (as hydrochloride) 8 mg Oral tab 1 tab every 6 hours as needed (Last dose: 11/03/2016 20:00) 5. lisinopril 10 mg Oral tab 1 tab once daily (Last dose: 11/03/2016 08:00) 6. oxycodone 5 mg Oral cap 1 cap every 6 hours (Last dose: 11/04/2016 00:45) - PMHx: COPD; Hypertension; lung cancer; bone cancer; liver cancer; - PSHx: none; - Social history: Smoking status: Patient states former smoker of tobacco. No barriers to communication noted, The patient speaks fluent Georgian. - Family history: Not pertinent. - : The pt / caregiver states he / she is not on anticoagulants. Home medication list is obtained from family members. - Exposure Risk Screening:: None identified. Screenin:39 Screening information is obtained from the patient, family members. Fall risk: At risk mgs due to age. Assistance ADL's: requires no assistance with activities of daily living. Abuse/DV Screen: The patient / caregiver reports he/she is: not in a situation that causes fear, pain or injury. Nutritional screening: No deficits noted. Advance Directives: Currently, there is no health care proxy. There is no active DNR order. home support is adequate. Assessment: 02:48 General: Appears ill, Behavior is cooperative. Pain: Location: low back area Pain mlc currently is 6 out of 10 on a pain scale. Neurological: Level of Consciousness is awake, obeys commands, Oriented to person, place, time. Cardiovascular: Capillary refill < 3 seconds Heart tones S1 S2 present Rhythm is regular Chest pain is denied. Respiratory: Airway is patent Respiratory effort is even, labored, Respiratory pattern is regular, Breath sounds with rhonchi expiratory bilaterally. Reports shortness of breath. Derm: Skin is pale. 03:25 Reassessment: Patient appears in no apparent distress at this time. Patient states mlc symptoms have not improved. no changes since prior. resp labored. RT at bedside. 03:42 Reassessment: Patient appears in no apparent distress at this time. pt medicated per mlc order. 04:38 General: pt returned from CT, IV fluids infusing per order. non-rebreather in place. . mlc 04:45 General: pt becoming restless on stretcher. pt advised to stay in bed. pt c/o increased mlc abdominal pain. Dr. Smith made aware. 04:47 General: Dr. Smith at bedside, speaking with about patient's rapidly mlc deteriorating condition. pt resting on stretcher, HR decreasing at this time. . 04:53 General: agonal resp at this time. at bedside. . mlc 04:55 General: pt pronounced at this time. . mlc 07:00 General: Multiple family members here and waiting for more to arrive - comfort cart has kcs been provided.. 07:00 General: family has left at this time. kcs Social Work Consult: 06:06 Social Work Note: Provided support to the family. jfb Vital Signs: 02:26 BP 118 / 82 (auto/); mlc 02:27 BP 144 / 65; Pulse 105; Resp 24; Temp 97.2(TE); Weight 64.86 kg (R); Height 5 ft. 10 dajuan in. (177.80 cm) (R); Pain 0/10; 02:27 Pulse 95 MON; Pulse Ox 90% ; mlc 02:42 Pulse 92 MON; Pulse Ox 91% ; mlc 03:24 Pulse 98 MON; Pulse Ox 93% ; mlc 03:26 Pulse 97 MON; Pulse Ox 95% ; mlc 03:26 BP 117 / 79 (auto/); mlc 03:35 BP 133 / 95 (auto/); mlc 03:35 Pulse 106 MON; Pulse Ox 100% ; mlc 03:45 Pulse 100 MON; Pulse Ox 93% ; mlc 03:45 BP 120 / 82 (auto/); mlc 04:00 BP 139 / 66; Pulse 104; Pulse Ox 97% ; Pain 10/10; mlc 04:09 Pulse 101 MON; Pulse Ox 93% ; mlc 04:09 BP 139 / 66 (auto/); mlc 04:30 BP 135 / 85 (auto/); mlc 04:37 Pulse 108 MON; Pulse Ox 94% ; mlc 04:45 BP 108 / 93 (auto/); mlc 04:45 Pulse 108 MON; Pulse Ox 78% ; mlc 04:59 Pulse 0 MON; mlc 02:27 Body Mass Index 20.52 (64.86 kg, 177.80 cm) dajuan ED Course: 02:16 Patient visited by Rodri Rich, Evp Strategy. ml3 02:16 Nika Looney,RN is Primary Nurse. ml3 02:16 Patient moved to Waiting ml3 02:16 Patient moved to 10 ml3 02:20 Triage Initiated mgs 02:26 Patient moved to 3 oct 02:27 Pt greeted and oriented to ED. Patient advised of names of staff involved in care, dajuan location of call bashir, wait times and NPO status. Patient has correct armband on for positive identification. Placed in gown. Bed in low position. Call light in reach. Side rails up X2. dry ice maker on. Pulse ox on. NIBP on. 02:28 Patient visited by Ophelia Diaz PCA. dajuan 02:39 The patient / caregiver is instructed regarding the plan of care and ED course. mgs 02:40 Maintain field IV. Dressing intact. Good blood return noted. Site clean & dry. Gauge & mgs site: 20 gauge in the left AC. 02:48 O2 via non-rebreather \T\ 15L/min. mlc 02:50 Patient visited by Nika Looney RN. mlc 03:01 Dana Smith DO is Attending Physician. mm11 03:01 Patient visited by Dana Smith DO. mm11 03:16 Patient visited by Dana Smith DO. mm11 03:18 Patient visited by Ophelia Diaz PCA. dajuan 03:18 Patient moved to Radiology moncho 03:18 EKG done. (by ED staff). Reviewed by Dana Smith DO. dajuan 03:25 BLOOD CULTURES Sent. mlc 03:25 -Blood Culture Sent. mlc 03:25 B-Type Natiuretic Peptide Sent. mlc 03:25 Basic Metabolic Profile Sent. mlc 03:25 CBC with Diff Sent. mlc 03:25 Cardiac Injury Profile Sent. mlc 03:26 Patient visited by Nika Looney RN. mlc 03:32 Patient moved to 3 moncho 03:43 Patient visited by Nika Looney RN. mlc 03:59 DIFFERENTIAL NO CHARGE Sent. mlc 04:02 -Arterial Blood Gas Sent. rs5 04:15 Notified attending ED physician of Critical lab value. pH 7.046 pCo2 17.1 and glucose js15 of 32. 04:21 Lactic Acid (Bruno tube on ice) Sent. mlc 04:39 Patient visited by Nika Looney RN. mlc 04:50 Patient name changed from Joann\S\\S\Ibrahim\S\ to Joann\S\ \S\Ibrahim. EDMS 04:51 [place] Payment Agreement was scanned into [employer] and attached to record. hs2 04:51 Notified attending ED physician of Critical lab value. lactic acid of 17. mlc 05:09 Dana Smith DO is Pronouncing Provider. mm11 05:12 Chest, 1 View Returned. EDMS 05:12 No procedures done that require assistance. mlc 05:20 Patient moved to Oct 05:36 Trend VS was scanned into [employer] and attached to record. ml3 06:33 CT Chest Without Contrast Returned. EDMS 06:33 CT ABD & PELVIS: No Contrast Returned. EDMS 08:54 Primary Nurse role handed off by Nika Looney,RN jc4 14:28 Other: CHECKLIST FOR PT was scanned into [employer] and attached to record. gb 14:28 T-Sheet-- Draft Copy was scanned into [employer] and attached to record. gb 14:28 ECG/EKG was scanned into [employer] and attached to record. gb 14:28 Radiology Report was scanned into [employer] and attached to record. gb 14:29 PCR was scanned into [employer] and attached to record. gb 21:23 EKG-ADULT Returned. EDMS Administered Medications: 03:35 Drug: morphine 4 mg [morphine 4 mg/mL intravenous cartridge (1 mL)] Route: IVP; Site: [facility] [place] left antecubital; 04:00 Follow up: BP 139 / 66; Pulse 104 bpm; Pulse Ox 97% ; Pain 10/10 Adult [facility] [place] 03:45 Drug: Albuterol-Ipratropium 1 neb [ipratropium-albuterol 0.5 mg-3 mg(2.5 mg base)/3 mL rs5 nebulization soln (1 neb)] Route: Nebulizer; 04:00 Drug: Albuterol-Ipratropium 1 neb [ipratropium-albuterol 0.5 mg-3 mg(2.5 mg base)/3 mL rs5 nebulization soln (1 neb)] Route: Nebulizer; 04:00 Drug: Albuterol-Ipratropium 1 neb [ipratropium-albuterol 0.5 mg-3 mg(2.5 mg base)/3 mL rs5 nebulization soln (1 neb)] Route: Nebulizer; 04:12 Drug: morphine 4 mg [morphine 4 mg/mL intravenous cartridge (1 mL)] Route: IVP; Site: mlc left antecubital; 04:20 Drug: D50W 50 ml [dextrose 50 % in water (D50W) intravenous syringe (50 mL)] Route: mlc IVP; Site: left antecubital; 04:38 Drug: NS 0.9% 1000 ml [sodium chloride 0.9 % intravenous solution] Route: IV; Rate: mlc bolus; Site: left antecubital; 04:55 CANCELLED (patient ): LORazepam 1 mg IVP once mgs 06:52 Not Given (Patient ): Dilaudid - HYDROmorphone 1 mg IVP once oct 06:53 Not Given (Patient ): Piperacillin-Tazobactam 3.375 grams IVPB once over 30 oct mins; dilute in 50mL of NS or D5W Attachments: 05:36 Trend VS ml3 RT: 02:40 O2 via high flow nasal cannula with humidity for comfort. 15 lpm sats 93%. rs5 02:48 O2 via non-rebreather pt didn't tolerate high flow cannula. requested to have the non rs5 rebreather. 04:02 ABG's drawn from right radial artery allens test done and positive pressure held for 5 rs5 minutes no bleeding noted pressure bandage applied specimen sent pt. tolerated well. Initial Med Neb Given as ordered Patient was instructed and evaluated on procedure Patient tolerated procedure well without adverse effect Subsequent Med Neb Given as ordered Patient tolerated procedure well without adverse effect. Respiratory: Respiratory effort is even, labored, Use of accessory muscles noted. w/ retractions, Breath sounds are coarse bilaterally. Reports. Order Results: Lab Order: -Arterial Blood Gas; SPEC'M 11/04/16 03:35 Test: ABG pH (ARTERIAL); Value: 7.046; Range: 7.350-7.450; Abnormal: Critical Low; Units: UNITS; Status: F Test: ABG PARTIAL PRESSURE CO2; Value: 17.1; Range: 35.0-45.0; Abnormal: Critical Low; Units: mmHg; Status: F Test: ABG PARTIAL PRESSURE O2; Value: 129.9; Range: 75.0-100.0; Abnormal: Above high normal; Units: mmHg; Status: F Test: ABG TOTAL CO2; Value: 5.1; Range: 23.0-31.0; Abnormal: Below low normal; Units: MEQ/L; Status: F Test: ABG HCO3; Value: 4.6; Range: 22.0-26.0; Abnormal: Below low normal; Units: MEQ/L; Status: F Test: ABG BASE EXCESS; Value: -24.1; Range: -2.0-2.0; Abnormal: Below low normal; Status: F Test: ABG STANDARD HCO3; Value: 7.9; Range: 22.0-26.0; Abnormal: Below low normal; Units: MEQ/L; Status: F Test: ABG O2 SATURATION; Value: 97.2; Range: 95.0-99.0; Units: %; Status: F Test: ABG DEVICE; Value: NASAL ERIKA; Status: F Lab Order: -Blood Culture; SPEC' 11/04/16 03:21 Test: BLOOD CULTURE; Value: No growth after 24 hours . All specimens observed; Status: F Test: BLOOD CULTURE; Value: for 5 days. Results final at that time.; Status: F Test: BLOOD CULTURE; Value: No Growth after 48 hours. All Specimens observed; Status: F Test: BLOOD CULTURE; Value: for 7 days. Results final at that time.; Status: F Lab Order: B-Type Natiuretic Peptide; SPEC' 11/04/16 03:21 Test: BRAIN NATRIURETIC PEPTIDE; Value: 960; Range: <100; Abnormal: Above high normal; Units: PG/ML; Status: F Lab Order: Basic Metabolic Profile; SPEC' 11/04/16 03:21 Test: GLUCOSE, FASTING; Value: 32; Range: 80-110; Abnormal: Critical Low; Units: MG/DL; Status: F Test: BLOOD UREA NITROGEN; Value: 51; Range: 7-18; Abnormal: Above high normal; Units: MG/DL; Status: F Test: CREATININE FOR GFR; Value: 1.76; Range: 0.70-1.30; Abnormal: Above high normal; Units: MG/DL; Status: F Test: GLOMERULAR FILTRATION RATE; Value: 42.1; Range: >49; Abnormal: Below low normal; Status: F Test: SODIUM LEVEL; Value: 141; Range: 136-145; Units: MEQ/L; Status: F Test: POTASSIUM SERUM; Value: 5.6; Range: 3.5-5.1; Abnormal: Above high normal; Units: MEQ/L; Status: F Test: CHLORIDE LEVEL; Value: 100; Range: 98-107; Units: MEQ/L; Status: F Test: CARBON DIOXIDE LEVEL; Value: 10; Range: 21-32; Abnormal: Below low normal; Units: MEQ/L; Status: F Test: ANION GAP; Value: 31; Range: 8-16; Abnormal: Above high normal; Units: MEQ/L; Status: F Test: CALCIUM LEVEL; Value: 10.8; Range: 8.8-10.2; Abnormal: Above high normal; Units: MG/DL; Status: F Test Note: ; Units are mL/min/1.73 m2 Chronic Kidney Disease Staging per NKF: Stage I & II GFR >=60 Normal to Mildly Decreased Stage III GFR 30-59 Moderately Decreased Stage IV GFR 15-29 Severely Decreased Stage V GFR <15 Very Little GFR Left ESRD GFR <15 on ONBOARDING SPECIALIST Lab Order: CBC with Diff; SPEC'M 11/04/16 03:21 Test: WHITE BLOOD COUNT; Value: 20.0; Range: 4.0-10.0; Abnormal: Above high normal; Units: K/mm3; Status: F Test: RED BLOOD COUNT; Value: 4.58; Range: 4.30-6.10; Units: M/mm3; Status: F Test: HEMOGLOBIN; Value: 13.3; Range: 14.0-18.0; Abnormal: Below low normal; Units: g/dl; Status: F Test: HEMATOCRIT; Value: 43.0; Range: 42.0-52.0; Units: %; Status: F Test: MEAN CORPUSCULAR VOLUME; Value: 93.8; Range: 80.0-96.0; Units: fl; Status: F Test: MEAN CORPUSCULAR HEMOGLOBIN; Value: 29.1; Range: 27.0-33.0; Units: pg; Status: F Test: MEAN CORPUSCULAR HGB CONC; Value: 31.0; Range: 32.0-36.5; Abnormal: Below low normal; Units: g/dl; Status: F Test: RED CELL DISTRIBUTION WIDTH; Value: 14.9; Range: 11.5-14.5; Abnormal: Above high normal; Units: %; Status: F Test: PLATELET COUNT, AUTOMATED; Value: 54; Range: 150-450; Abnormal: Below low normal; Units: k/mm3; Status: F Test Note: ; A Pathologist review of this differential can help in the evaluation of a differential diagnosis. Please order a Pathologist Review (PATHREVCOMP) if deemed necessary. Results are subject to change if a Pathologist Review is performed. Test: NEUTROPHILS; Value: 62; Range: 35-75; Units: %; Status: F Test: LYMPHOCYTES; Value: 30; Range: 16-52; Units: %; Status: F Test: MONOCYTES; Value: 5; Range: 0-8; Units: %; Status: F Test: EOSINOPHILS; Value: 1; Range: 0-5; Units: %; Status: F Test: ATYPICAL LYMPH; Value: 2; Range: 0-5; Units: %; Status: F Test: NUCLEATED RED BLOOD CELL; Value: 2; Range: 0-0; Abnormal: Above high normal; Units: %; Status: F Test: RBC MORPHOLOGY; Value: NORMAL; Status: F Test: HYPOCHROMASIA; Value: 1+; Status: F Lab Order: Cardiac Injury Profile; SPEC'M 11/04/16 03:21 Test: CPK CREATINE PHOSPHOKINASE; Value: 761; Range: 39-308; Abnormal: Above high normal; Units: U/L; Status: F Test: CK-MB VALUE MASS; Value: 12.1; Range: 0.0-3.6; Abnormal: Above high normal; Units: NG/ML; Status: F Test: MB/CK RELATIVE INDEX; Value: 1.59; Range: < OR =4; Status: F Test Note: ; DIAGNOSIS CRITERIA MMB ng/ml Relative Index (RI) NON-AMI < or = 5 N/A BRUNO ZONE > 5 < or = 4 AMI > 5 > 4 Lab Order: BLOOD CULTURES; SPEC'M 11/04/16 03:21 Test: BLOOD CULTURE; Value: No growth after 24 hours . All specimens observed; Status: F Test: BLOOD CULTURE; Value: for 5 days. Results final at that time.; Status: F Test: BLOOD CULTURE; Value: No Growth after 48 hours. All Specimens observed; Status: F Test: BLOOD CULTURE; Value: for 7 days. Results final at that time.; Status: F Lab Order: PLATELET ESTIMATE; SPEC'M 11/04/16 03:21 Test: PLATELET ESTIMATE; Value: MARKED DECREASE; Range: NORMAL; Status: F Lab Order: Lactic Acid (Bruno tube on ice); SPEC'M 11/04/16 03:21 Test: LACTIC ACID LEVEL, LACTATE; Value: 17.0; Range: 0.4-2.0; Abnormal: Above upper panic limits; Units: MMOL/L; Status: F Radiology Order: Chest, 1 View Test: Chest, 1 View REASON FOR EXAMINATION: Cough; Clinical: Cough.; ; Technique: Portable AP view.; ; Findings:; Large right hilar mass / consolidation extending into the right upper lobe and; right perihilar region is appreciated along with underlying chronic; COPD/emphysematous changes. Trace left basilar atelectasis cannot be excluded.; No obvious effusion or pneumothorax. Daaide-E-Mamc identified extending into the; SVC. Cardiac silhouette appears normal. Skeletal structures intact.; ; Impression:; Right hilar mass / consolidation extending into the right upper lobe.; Chronic COPD/emphysematous changes.; Trace left basilar atelectasis.; ; ; Signed by; Thiago Zavaleta MD 11/04/2016 04:26 A; Radiology Order: EKG-ADULT Test: EKG-ADULT REASON FOR EXAMINATION: Cough; Stationary ECG Study; [facility] - ED; ; Test Date: 2016-11-04; Pat Name: JOANN IBRAHIM Department:; Room: -; Gender: M Call Center Support Consultant: hellen; : 1955 Requested By: DANA Storey; Order Number: [id number] Marjan MD: Marlena Crenshaw; Measurements; Intervals [place]; Rate: 99 P: 73; AK: 109 QRS: 81; QRSD: 125 T: 9; QT: 349; QTc: 449; Interpretive Statements; SINUS RHYTHM WITH SHORT AK INTERVAL; POSSIBLE LEFT ATRIAL ENLARGEMENT; POSSIBLE RIGHT VENTRICULAR CONDUCTION DELAY; NO PRIOR FOR COMPARISON; Electronically Signed On 11-04-2016 20:48:07 EST by Marlena Crenshaw; Radiology Order: CT Chest Without Contrast Test: CT Chest Without Contrast REASON FOR EXAMINATION: Shortness of Breath; ; CLINICAL HISTORY: Shortness of breath.; TECHNIQUE: Multiple axial CT images were obtained through the thorax without IV contrast material.; COMMENTS:; 10.9x5.4 cm heterogeneous right upper lobe/perihilar mass.; Moderate pulmonary emphysema.; Bilateral groundglass densities of the lungs.; Left Port-A-Cath is in good position with its tip in the superior vena cava.; Small sliding hiatal hernia.; Moderate cardiomegaly.; Spondylosis.; Diffuse bilateral groundglass densities of the lungs.; Mediastinal and hilar lymphadenopathy. The largest lymph node measures 1.3 cm.; IMPRESSION:; Heterogeneous right upper lobe/ihilar mass.; Emphysema.; Groundglass densities of the lungs.; Mediastinal and hilar lymphadenopathy.; Thank you for your kind referral of this patient.; ; ; Radiology Order: CT ABD & PELVIS: No Contrast Test: CT ABD & PELVIS: No Contrast REASON FOR EXAMINATION: Abdomen Pain; ; CLINICAL HISTORY: Abdominal pain.; TECHNIQUE: Multiple axial, sagittal and coronal CT images were obtained through the abdomen and pelvi; s without administration of oral or IV contrast material.; COMMENTS:; The liver is moderately enlarged without mass or defect. Diffuse irregular hepatic contour. There is; no intra or extrahepatic biliary ductal dilatation. The spleen is normal. The gallbladder is within n; ormal limits. The pancreas is of normal contour and attenuation characteristics. There is no evidence; of adrenal mass.; The kidneys are normal in size, shape and configuration. No renal or ureteral calculi are identified.; There is no hydroureter or hydronephrosis.; There is no evidence for appendicitis. There is no bowel wall thickening. No evidence for small or la; rge bowel obstruction. There is no evidence of abdominal ascites or lymphadenopathy.; There is no evidence of intrinsic or extrinsic bladder mass. There is no pelvic ascites or lymphadeno; sheri.; Moderate prostatomegaly. Prostatic calcifications. Diffuse thickening of the wall of the bladder.; Images of the lung bases show no evidence of pleural or parenchymal mass. There are no pleural effusi; ons.; The bony structures are free of lytic or blastic lesions. Multilevel degenerative changes are seen in; volving the thoracolumbar spine.; Scattered calcifications are seen involving the aorta and major branches compatible with atherosclero; sis.; IMPRESSION:; Moderate prostatomegaly.; Prostatic calcifications.; Diffuse thickening of the wall of the bladder.; Moderate hepatomegaly with diffuse irregularity of hepatic contour.; Thank you for your kind referral of this patient.; ; Outcome: 05:10 Patient . mm11 05:10 Discharge Assessment: patient administered narcotics - yes. mlc 10:49 Discharged to. Condition: . Property :Personal belongings accompany Pt. kcs 10:51 The following High Risk Discharge criteria are identified: Yes, PSAs Pilar Kruse and meena Jamil One had multiple contacts with family members. Patient : Time of 04:55 Pronounced by Dana Smith DO Family Notified: here at time of Body to slick Soriano MD notified Dr. Venegas will sign certificate - family requests [facility] in [place]. CT Study completed. 10:54 Patient left the ED. [facility] Signatures: Dispatcher [employer] Marisa Virgen RN Yulisa Rubio RN Guillermo Hollingsworth Gloria, Reg Reg gb Layla Rodri, Evp Strategy Unit ml3 Dana Smith DO DO mm11 Pilar Kruse, PSA PSA [place] Rico RN RN jc4 Ophelia Diaz, GUN PROFILER GUN PROFILER dajuan Harsha Leslie,RT RT rs5 Nika Looney RN RN mlc Sheldon, Matthew,Susanne Carpenter RN,RN RN js15 Laurie Hills, Reg Reg hs2 Corrections: (The following items were deleted from the chart) 02:39 02:29 Allergies: no known allergies; mgs mgs 05:12 04:55 General: pt pronounced at this time. . mlc mlc Chart Complete MTDD
--- NOTE | 2016-11-06 11:56 | EDDOCDS ---
Physician Documentation [facility] Name: Bryan Patel Age: 61 yrs Sex: Male : 1955 Arrival Date: 11/04/2016 Time: 02:15 Bed 21 Private MD: Disposition: Patient pronounced on 11/04/16 04:55 by Edward Smith. Impression: Cardiac arrest - End-stage lung cancer, Metabolic acidemia, unspecified - severe. Historical: - Allergies: no known allergies; - Home Meds: 1. Doc-Q-Lace 100 mg oral cap 1 cap 2 times per day 2. prochlorperazine maleate 5 mg Oral tab 1 tab 3 times per day as needed (Last dose: 11/03/2016 20:00) 3. atenolol 25 mg Oral tab 1 tab once daily (Last dose: 11/03/2016 08:00) 4. Zofran (as hydrochloride) 8 mg Oral tab 1 tab every 6 hours as needed (Last dose: 11/03/2016 20:00) 5. lisinopril 10 mg Oral tab 1 tab once daily (Last dose: 11/03/2016 08:00) 6. oxycodone 5 mg Oral cap 1 cap every 6 hours (Last dose: 11/04/2016 00:45) - PMHx: COPD; Hypertension; lung cancer; bone cancer; liver cancer; - PSHx: none; - Social history: Smoking status: Patient states former smoker of tobacco. No barriers to communication noted, The patient speaks fluent Croatian. - Family history: Not pertinent. - : The pt / caregiver states he / she is not on anticoagulants. Home medication list is obtained from family members. - Exposure Risk Screening:: None identified. Vital Signs: 11/04 02:26 BP 118 / 82 (auto/); mlc 02:27 BP 144 / 65; Pulse 105; Resp 24; Temp 97.2(TE); Weight 64.86 kg / 142.99 lbs (R); dajuan Height 5 ft. 10 in. (177.80 cm) (R); Pain 0/10; 02:27 Pulse 95 MON; Pulse Ox 90% ; mlc 02:42 Pulse 92 MON; Pulse Ox 91% ; mlc 03:24 Pulse 98 MON; Pulse Ox 93% ; mlc 03:26 Pulse 97 MON; Pulse Ox 95% ; mlc 03:26 BP 117 / 79 (auto/); mlc 03:35 BP 133 / 95 (auto/); mlc 03:35 Pulse 106 MON; Pulse Ox 100% ; mlc 03:45 Pulse 100 MON; Pulse Ox 93% ; mlc 03:45 BP 120 / 82 (auto/); mlc 04:00 BP 139 / 66; Pulse 104; Pulse Ox 97% ; Pain 10/10; mlc 04:09 Pulse 101 MON; Pulse Ox 93% ; mlc 04:09 BP 139 / 66 (auto/); mlc 04:30 BP 135 / 85 (auto/); mlc 04:37 Pulse 108 MON; Pulse Ox 94% ; mlc 04:45 BP 108 / 93 (auto/); mlc 04:45 Pulse 108 MON; Pulse Ox 78% ; mlc 04:59 Pulse 0 MON; mlc 02:27 Body Mass Index 20.52 (64.86 kg, 177.80 cm) dajuan MDM: 03:12 -Blood Culture (Adults Only), peripheral from different site, or from device/port/PICC mm11 etc. if present ordered. 03:12 Call Respiratory ordered. mm11 03:12 Advanced Manager/Pulse Ox/q 15 min VS ordered. mm11 03:12 IV Saline Lock ordered. mm11 03:12 Oxygen at 4L/Min NC or Home dosage ordered. mm11 03:12 Rhythm Strip to chart ordered. mm11 03:12 Albuterol-Ipratropium 1 neb Nebulizer every 20 minutes x3 ordered. mm11 03:13 -Arterial Blood Gas Ordered. EDMS 03:13 B-Type Natiuretic Peptide Ordered. EDMS 03:13 Basic Metabolic Profile Ordered. EDMS 03:13 CBC with Diff Ordered. EDMS 03:13 Cardiac Injury Profile Ordered. EDMS 03:13 -Blood Culture Ordered. EDMS 03:14 Chest, 1 View Ordered. EDMS 03:14 ECG WITH READING ER PHYS+CARDIAG ordered. EDMS 03:17 Call Respiratory complete. ml3 03:20 BLOOD CULTURES Ordered. EDMS 03:23 -Blood Culture (Adults Only), peripheral from different site, or from device/port/PICC ml3 etc. if present complete. 03:31 morphine 4 mg IVP every 30 minutes; Document pain score/vitals after each dose (Hold if mm11 SBP < 90mmHg) x2 ordered. 03:54 DIFFERENTIAL NO CHARGE Ordered. EDMS 04:10 B-Type Natiuretic Peptide Reviewed. mm11 04:10 CBC with Diff Reviewed. mm11 04:10 PLATELET ESTIMATE Reviewed. mm11 04:16 D50W 50 ml IVP once; (1 amp) ordered. mm11 04:16 -Arterial Blood Gas Reviewed. mm11 04:16 Basic Metabolic Profile Reviewed. mm11 04:16 Cardiac Injury Profile Reviewed. mm11 04:17 NS 0.9% 1000 ml IV at bolus once ordered. mm11 04:18 Lactic Acid (Bruno tube on ice) Ordered. EDMS 04:18 CT Chest Without Contrast Ordered. EDMS 04:19 CT ABD & PELVIS: No Contrast Ordered. EDMS 04:43 Piperacillin-Tazobactam 3.375 grams IVPB once over 30 mins; dilute in 50mL of NS or D5W mm11 ordered. 04:45 Dilaudid - HYDROmorphone 1 mg IVP once ordered. mm11 04:51 Financial registration complete. hs2 04:[place] [facility] [place] was scanned into [employer] and attached to record. hs2 04:58 Lactic Acid (Bruno tube on ice) Reviewed. mm11 05:25 Chest, 1 View Reviewed. mm11 05:36 Trend VS was scanned into [employer] and attached to record. ml3 14:28 Other: CHECKLIST FOR PT was scanned into [employer] and attached to record. gb 14:28 T-Sheet-- Draft Copy was scanned into [employer] and attached to record. gb 14:28 ECG/EKG was scanned into [employer] and attached to record. gb 14:28 Radiology Report was scanned into [employer] and attached to record. gb 14:29 PCR was scanned into [employer] and attached to record. gb Administered Medications: 03:35 Drug: morphine 4 mg [morphine 4 mg/mL intravenous cartridge (1 mL)] Route: IVP; Site: mlc left antecubital; 04:00 Follow up: BP 139 / 66; Pulse 104 bpm; Pulse Ox 97% ; Pain 10/10 Adult [facility] [place] 03:45 Drug: Albuterol-Ipratropium 1 neb [ipratropium-albuterol 0.5 mg-3 mg(2.5 mg base)/3 mL rs5 nebulization soln (1 neb)] Route: Nebulizer; 04:00 Drug: Albuterol-Ipratropium 1 neb [ipratropium-albuterol 0.5 mg-3 mg(2.5 mg base)/3 mL rs5 nebulization soln (1 neb)] Route: Nebulizer; 04:00 Drug: Albuterol-Ipratropium 1 neb [ipratropium-albuterol 0.5 mg-3 mg(2.5 mg base)/3 mL rs5 nebulization soln (1 neb)] Route: Nebulizer; 04:12 Drug: morphine 4 mg [morphine 4 mg/mL intravenous cartridge (1 mL)] Route: IVP; Site: mlc left antecubital; 04:20 Drug: D50W 50 ml [dextrose 50 % in water (D50W) intravenous syringe (50 mL)] Route: mlc IVP; Site: left antecubital; 04:38 Drug: NS 0.9% 1000 ml [sodium chloride 0.9 % intravenous solution] Route: IV; Rate: mlc bolus; Site: left antecubital; 04:55 CANCELLED (patient ): LORazepam 1 mg IVP once mgs 06:52 Not Given (Patient ): Dilaudid - HYDROmorphone 1 mg IVP once oct 06:53 Not Given (Patient ): Piperacillin-Tazobactam 3.375 grams IVPB once over 30 oct mins; dilute in 50mL of NS or D5W Signatures: Dispatcher [employer] EDMS Marisa Zepeda RN RN [facility] Nona Harvey, Reg Reg gb Rodri Rich, Clinic Clerk Unit ml3 Edward Smith, DO DO mm11 Nika Looney RN RN [facility] [place] Edward Alford RN RN mgs Laurie Hills, Reg Reg hs2 Yulisa Kearney RN, Richard RT rs5 The chart was reviewed and I authenticate all verbal orders and agree with the evaluation and treatment provided.Corrections: (The following items were deleted from the chart) 02:39 02:29 Allergies: no known allergies; mgs mgs 04:55 04:54 LORazepam 1 mg IVP once ordered. mgs mgs 06:53 04:16 Accucheck hourly ordered. mm11 oct Attachments: 04:51 [facility] Payment Agreement hs2 14:28 T-Sheet-- Draft Copy gb 14:28 ECG/EKG gb Chart Complete MTDD
== END 2016-11-04 04:55 | disposition expired ==
LOC: M ED 02:15
DX: R10.9 Unspecified abdominal pain (principal); I46.8 Cardiac arrest due to other underlying condition; C34.90 Malignant neoplasm of unspecified part of unspecified bronchus or lung; E87.2 Acidosis; J44.9 Chronic obstructive pulmonary disease, unspecified; I10 Essential (primary) hypertension; C78.7 Secondary malignant neoplasm of liver and intrahepatic bile duct; C79.51 Secondary malignant neoplasm of bone; Z87.891 Personal history of nicotine dependence; Z79.899 Other long term (current) drug therapy
CPT/HCPCS: 36600; 71010; 71250; 74176; 80048; 82550; 82553; 82803; 83605; 83880; 85025; 87040; 93005; 93041; 94640; 96374; 96375; 96376; 99285; J1170; J2060; J2543